=== PATIENT | female | born 1960 ===

== ENCOUNTER 2017-05-22 01:48 | Inpatient (IN) | payer OTHER ==
[2017-05-22 03:03] LABS: BASO % 0.4 % (0.0-2.0); EOS % 0.5 % (0.0-4.0); HEMOGLOBIN 13.4 g/dL (12.0-16.0); LYMPH # 1.6 K/uL (1.0-4.3); LYMPH % 18.8 % (20.0-40.0); MEAN CELL VOLUME 96.1 fl (81.0-99.0); MEAN CORPUSCULAR HEMOGLOBIN 32.1 pg (27.0-31.0); MEAN CORPUSCULAR HGB CONC 33.4 g/dL (33.0-37.0); MEAN PLATELET VOLUME 10.2 fl (7.2-11.7); MONO # 0.7 K/uL (0.0-0.8); MONO % 8.4 % (0.0-10.0); NEUT % 71.9 % (50.0-75.0); RBC 4.16 Mil/uL (3.80-5.20); RED CELL DISTRIBUTION WIDTH 12.9 % (11.5-14.5); WHITE BLOOD COUNT 8.3 K/uL (4.8-10.8)
[2017-05-22 03:18] LABS: ALB/GLOB RATIO 1.6 (1.0-2.1); ALBUMIN 4.4 g/dL (3.5-5.0); ALT/SGPT 32 U/L (9-52); AST/SGOT 35 U/L (14-36); BLOOD UREA NITROGEN 12 mg/dl (7-17); CALCIUM 9.6 mg/dL (8.4-10.2); GFR AFRICAN-AMERICAN > 60; GFR NON-AFRICAN AMERICAN > 60
[2017-05-22] MEDS ORDERED: Nitroglycerin 2% Ointment Foilpak UD TOP STA (03:32)
--- NOTE | 2017-05-22 03:34 | ED PDOC ---
HPI: Chest Pain Time Seen by Provider: 05/22/17 02:11 Chief Complaint (Nursing): Chest Pain Chief Complaint (Provider): Chest Pain History Per: Patient History/Exam Limitations: no limitations Onset/Duration Of Symptoms: Days (x1) Current Symptoms Are (Timing): Still Present Additional Complaint(s): 23 year old female with a past medical history of dyslipidemia, who presents to the ED complaining of acute substernal chest tightness x1 day. 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 Also states she felt anxious at the time. Says she went home after leaving work and her symptoms persisted. Denies vomiting, nausea, or diaphoresis. PMD: Non-[facility] Provider Past Medical History Reviewed: Historical Data, Nursing Documentation, Vital Signs Vital Signs: Last Vital Signs Temp 98.1 F 05/22/17 05:00 Pulse 68 05/22/17 05:24 Resp 18 05/22/17 05:24 BP 121/79 05/22/17 05:00 Pulse Ox 98 05/22/17 05:24 - Medical History Other PMH: Dyslipidemia - Surgical History Other surgeries: Right knee arthroscopy - Family History Family History: States: Unknown Family Hx - Social History Current smoker - smoking cessation education provided: No Alcohol: None Drugs: Denies - Home Medications Home Medications: Ambulatory Orders Medication Instructions Recorded No Known Home Med 05/22/17 - Allergies Allergies/Adverse Reactions: Allergies Allergy/AdvReac Type Severity Reaction Status Date / Time No Known Allergies Allergy FEVER Verified 05/22/17 02:31 Review of Systems Constitutional: Negative for: Sweats Cardiovascular: Positive for: Chest Pain (substernal tightness) Gastrointestinal: Negative for: Nausea, Vomiting Physical Exam - Reviewed Nursing Documentation Reviewed: Yes Vital Signs Reviewed: Yes - Physical Exam Appears: Positive for: Non-toxic, No Acute Distress Head Exam: Positive for: ATRAUMATIC, NORMAL INSPECTION, NORMOCEPHALIC Skin: Positive for: Normal Color, Warm, Dry. Negative for: Rash Eye Exam: Positive for: EOMI, Normal appearance, PERRL Neck: Positive for: Normal, Painless ROM, Supple Cardiovascular/Chest: Positive for: Regular Rate, Rhythm. Negative for: Murmur Respiratory: Positive for: Normal Breath Sounds. Negative for: Respiratory Distress Gastrointestinal/Abdominal: Positive for: Normal Exam, Bowel Sounds, Soft. Negative for: Tenderness Back: Positive for: Normal Inspection. Negative for: L CVA Tenderness, R CVA Tenderness, Vertebral Tenderness Extremity: Positive for: Normal ROM. Negative for: Pedal Edema, Deformity Neurologic/Psych: Positive for: Alert, Oriented (x3). Negative for: Motor/ Sensory Deficits Comments: Patient is obese. - Laboratory Results Result Diagrams: 05/22/17 02:57 05/22/17 02:57 - ECG O2 Sat by Pulse Oximetry: 98 (RA) Pulse Ox Interpretation: Normal Medical Decision Making Medical Decision Making: Time: 02:46 Initial Impression: 56 year old female with chest pain in setting of anxiety Plan: --EKG --CMP --Troponin I --Urine --CBC w/ differential --Portable Chest X-Ray --Heplock insertion --Reevaluation --EKG shows NSR at [address]-T changes in lateral leads Time: 03:42 --Chest X-Ray shows no active diseases --Labs reviewed and found clinically significant for elevated Troponin at 2.3 --Aspirin 324 mg PO --Lopressor 25 mg PO --Lovenox 90 mg SC --Nitropaste --Patient will be admitted to Dr. German for NSTEMI Scribe Attestation: Documented by Rex Lobato, acting as a scribe for Paulo Caceres MD. Provider Scribe Attestation: All medical record entries made by the Scribe were at my direction and personally dictated by me. I have reviewed the chart and agree that the record accurately reflects my personal performance of the history, physical exam, medical decision making, and the department course for this patient. I have also personally directed, reviewed, and agree with the discharge instructions and disposition. Disposition - Clinical Impression Clinical Impression: NSTEMI (non-ST elevated myocardial infarction) - Patient ED Disposition Is Patient to be Admitted: Yes - Disposition Disposition Time: 03:34 Condition: FAIR - Pt Status Changed To: Hospital Disposition Of: Inpatient - Admit Certification Admit to Inpatient:: After my assessment, the patient will require hospitalization for at least two midnights. This is because of the severity of symptoms shown, intensity of services needed, and/or the medical risk in this patient being treated as an outpatient.
[2017-05-22] MEDS ORDERED: Nitroglycerin 2% Ointment Foilpak UD TOP ONE (03:35)
[2017-05-22] MEDS ORDERED: Enoxaparin 100 mg Syringe SC STA (03:37)
--- NOTE | 2017-05-22 04:24 | CP.PCM.HP ---
History of Present Illness - History of Present Illness History of Present Illness: CC: chest pain HPI: 56 y/o woman w/ pmh of HLD presents to the ED for chest pain. Patient reports pain started last night at 21:00, midsternal, burning in nature, radiating to the back and neck, 5-6/10 in intensity, intermittent, improved by sitting, and worsened by movement. Patient denies taking medications at home for pain. 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 Patient currently denies pain. Patient denies headaches, dizziness, SOB, abdominal pain, nausea, vomiting, diarrhea, dysuria, fever, or recent illness. ED course: vitals: 99.0 F, 89 bpm, 149/82 mm Hg, resp 16, O2 98% RA CBC w/ differential: 8.3>13.4/40.0 CMP: 140/3.7, 103/27, 12/0.7, glucose 128, AST 35, ALT 32, alk phos 95 Troponin I: 2.23 EKG: NSR at [address]-T changes in lateral leads Portable Chest X-Ray: shows no active diseases Aspirin 324 mg PO Lopressor 25 mg PO Lovenox 90 mg SC Nitropaste Patient will be admitted to [facility] for NSTEMI PMD: [facility] PMH: D allerrgies: NKDA meds: simvastatin 20 mg PO daily PSH: left knee arthroscopy 2007 FamHx: denies SOC; denies smoking, alcohol, and illegal drugs ROS: 12 points assessed and negative unless otherwise reported in HPI Present on Admission - Present on Admission Any Indicators Present on Admission: No History of DVT/PE: No History of Uncontrolled Diabetes: No Urinary Catheter: No Decubitus Ulcer Present: No Review of Systems - Review of Systems All systems: reviewed and no additional remarkable complaints except - Constitutional Constitutional: absent: Fever, Headache - EENT Eyes: absent: Change in Vision - Cardiovascular Cardiovascular: As Per HPI. absent: Leg Edema, Palpitations, Pedal Edema - Respiratory Respiratory: absent: Dyspnea, Wheezing - Gastrointestinal Gastrointestinal: absent: Abdominal Pain, Diarrhea, Nausea, Vomiting - Genitourinary Genitourinary: absent: Dysuria - Reproductive: Female Reproductive:Female: Post Menopausal - Menstruation Menstruation: Post Menopausal - Musculoskeletal Musculoskeletal: Back Pain - Integumentary Integumentary: absent: Rash - Neurological Neurological: absent: Dizziness, Headaches, Syncope Past Patient History - Past Social History Alcohol: None Drugs: Denies - PSYCHIATRIC Hx Substance Use: No - SURGICAL HISTORY Hx Surgeries: No Meds Allergies/Adverse Reactions: Allergies Allergy/AdvReac Type Severity Reaction Status Date / Time No Known Allergies Allergy FEVER Verified 05/22/17 02:31 Physical Exam - Constitutional Appears: Non-toxic, No Acute Distress - Head Exam Head Exam: ATRAUMATIC, NORMAL INSPECTION, NORMOCEPHALIC - Eye Exam Eye Exam: Normal appearance - ENT Exam ENT Exam: Mucous Membranes Moist, Normal Exam - Neck Exam Neck exam: Positive for: Full Rom, Normal Inspection. Negative for: Tenderness - Respiratory Exam Respiratory Exam: Clear to Auscultation Bilateral, NORMAL BREATHING PATTERN. absent: Decreased Breath Sounds, Prolonged Expiratory Phase, Rales, Rhonchi, Wheezes, Respiratory Distress - Cardiovascular Exam Cardiovascular Exam: REGULAR RHYTHM, RRR - GI/Abdominal Exam GI & Abdominal Exam: Normal Bowel Sounds, Soft. absent: Distended, Tenderness - Extremities Exam Extremities exam: Positive for: normal inspection. Negative for: calf tenderness, pedal edema, tenderness - Back Exam Back exam: NORMAL INSPECTION. absent: CVA tenderness (L), CVA tenderness (R), paraspinal tenderness, rash noted, tenderness, vertebral tenderness - Neurological Exam Neurological exam: Alert, Oriented x3 - Skin Skin Exam: Dry, Intact, Normal Color, Warm Results - Vital Signs Recent Vital Signs: Last Vital Signs Temp 98.8 F 05/22/17 03:45 Pulse 84 05/22/17 03:45 Resp 16 05/22/17 03:45 BP 136/91 H 05/22/17 03:45 Pulse Ox 98 05/22/17 03:51 - Labs Result Diagrams: 05/22/17 02:57 05/22/17 02:57 Labs: Laboratory Results - last 24 hr 05/22/17 05/22/17 02:57 02:57 WBC 8.3 D RBC 4.16 Hgb 13.4 Hct 40.0 MCV 96.1 MCH 32.1 H MCHC 33.4 RDW 12.9 Plt Count 151 MPV 10.2 Neut % (Auto) 71.9 Lymph % (Auto) 18.8 L [place] % (Auto) 8.4 Eos % (Auto) 0.5 Baso % (Auto) 0.4 Neut # 6.0 Lymph # 1.6 [place] # 0.7 Eos # 0.0 Baso # 0.0 Sodium 140 Potassium 3.7 Chloride 103 Carbon Dioxide 27 Anion Gap 14 BUN 12 Creatinine 0.7 Est GFR ( Amer) > 60 Est GFR (Non-Af Amer) > 60 Random Glucose 128 H Calcium 9.6 Total Bilirubin 0.4 AST 35 ALT 32 Alkaline Phosphatase 95 Troponin I 2.2300 H* Total Protein 7.1 Albumin 4.4 Globulin 2.7 Albumin/Globulin Ratio 1.6 Assessment & Plan - Assessment and Plan (Free Text) Assessment: 56 y/o woman w/ pmh of HLD presents to the ED for chest pain. EKG and troponin show NSTEMI Plan: Chest pain - patient currently denies - EKG and troponin show NSTEMI - IBRAHIMA score 3, intermediate - CBC w/ differential: 8.3>13.4/40.0 - CMP: 140/3.7, 103/27, 12/0.7, glucose 128, AST 35, ALT 32, alk phos 95 - Troponin I: 2.23 - EKG: NSR at [address]-T changes in lateral leads - Portable Chest X-Ray: shows no active diseases - given Aspirin 324 mg PO - given Lopressor 25 mg PO - given Lovenox 90 mg SC - given Nitropaste - Patient will be admitted to Tele for NSTEMI - monitor for acute changes - consider cardiology consult - c/w metoprolol tartrate 25 mg PO BID - f/u repeat troponin HLD - last lipid profile 03/17/2016: trig 131, chol 189, LDL 79, HDL 71 - on simvastatin 20 mg PO daily Prophylactic measures - lovenox 40 mg SC daily - protonix 40 mg PO daily
[2017-05-22] MEDS ORDERED: Influenza Vaccine 18yr & older 0.5 ML/45 MCG SYR IM ONE (05:46)
--- NOTE | 2017-05-22 08:00 | CP.PCM.PN ---
Subjective - Date & Time of Evaluation Date of Evaluation: 05/22/17 Time of Evaluation: 08:07 - Subjective Subjective: 56 F admitted for NSTEMI evaluation, was evaluated and examined by bedside. Pt reports her chest pain has improved remarkably, she is pain-free for 4 hours. Pt reports good appetite, able to ambulate. Pt c/o mild headache and left arm pain after influenza immunization administration. Pt denies fever, SOB, dizziness, abdominal pain, urinary complaints or peripheral edema. -Dr Hudson ordered echocardiogram today and was performed today. Results not available yet. Objective - Vital Signs/Intake and Output Vital Signs (last 24 hours): Temp Pulse Resp BP Pulse Ox 98.1 F 68 18 121/79 98 05/22/17 05:00 05/22/17 05:24 05/22/17 05:24 05/22/17 05:00 05/22/17 06:50 - Medications Medications: Current Medications Enoxaparin Sodium (Lovenox) 90 mg SC Q12 [facility] PRN Reason: Protocol Metoprolol Tartrate (Lopressor) 25 mg PO Q12 [facility] Pantoprazole Sodium (Protonix Ec Tab) 40 mg PO DAILY [facility]ARI - Labs Labs: 05/22/17 02:57 05/22/17 02:57 - Head Exam Head Exam: ATRAUMATIC, NORMAL INSPECTION, NORMOCEPHALIC - Eye Exam Eye Exam: Normal appearance - ENT Exam ENT Exam: Mucous Membranes Moist, Normal Exam - Neck Exam Neck Exam: Full ROM - Respiratory Exam Respiratory Exam: Clear to Ausculation Bilateral, NORMAL BREATHING PATTERN - Cardiovascular Exam Cardiovascular Exam: REGULAR RHYTHM, +S1, +S2 - GI/Abdominal Exam GI & Abdominal Exam: Soft. absent: Guarding, Tenderness - Extremities Exam Extremities Exam: Full ROM, Normal Inspection. absent: Joint Swelling Assessment and Plan - Assessment and Plan (Free Text) Plan: 56 y/o F with a PMHx of HLD, EKG shows ST chnages, elevated-troponin, admitted for evaluation and management of NSTEMI. Plan: 1. CHEST PAIN - IBRAHIMA score 3, intermediate - Troponin I: 2.23ng/mL at 02:57 and 1.5ng/mL at 10:44. - EKG at ED: nonspecific ST-T changes in lateral leads. Repeated EKG today at 09 :00 showed same results. - Portable Chest X-Ray: shows no active diseases - Aspirin 324 mg PO - Lopressor 25 mg PO - Lovenox 90 mg SC - Nitropaste - monitor for acute changes - Cardiology consult, called Dr Sal. - Pt will go for cardiac catheterization to [facility] tomorrow, 05/23/17. - dogger, Dr Hudson on board. - c/w metoprolol tartrate 25 mg PO BID - f/u repeat troponin, will be drawn at 17:45 - f/u hemoglobin A1c, echocardiogram results and cardiology recommendations. 2. HLD - last lipid profile 03/17/2016: trig 131, chol 189, LDL 79, HDL 71 - ASCVD risk: 1.4%. - Lipitor 10mg PO daily 3. Prophylactic measures - lovenox 40 mg SC daily - protonix 40 mg PO daily
[2017-05-22] MEDS ORDERED: Enoxaparin 40 mg Syringe SC SCH (09:00)
[2017-05-22] MEDS: Pantoprazole 40 mg EC Tab PO SCH (09:01)
[2017-05-22] MEDS: Enoxaparin 100 mg Syringe SC SCH ×2 (09:03→21:31)
--- NOTE | 2017-05-22 09:56 | RAD ---
HISTORY: chest pain COMPARISON: Chest radiograph dated 04/23/2012. FINDINGS: LUNGS: No active pulmonary disease. PLEURA: No significant pleural effusion identified, no pneumothorax apparent. CARDIOVASCULAR: Normal. OSSEOUS STRUCTURES: Unchanged. VISUALIZED UPPER ABDOMEN: Normal. OTHER FINDINGS: None. IMPRESSION: No active disease.
--- NOTE | 2017-05-22 10:52 | CP.PCM.CON ---
History of Present Illness - History of Present Illness History of Present Illness: 56 y/o h/f admitted with chest pain pain is described as pressure sensation at mid sternal area radiates to right and left chest this is first episode of pain EKG: lateral wall ischemia Troponin: + 2.26 Pt needs to have interventional cardiology see the patient for cardiac cath Past Patient History - Past Medical History & Family History Past Medical History?: Yes - Past Social History Alcohol: None Drugs: Denies - CARDIAC Hx Cardiac Disorders: Yes (Hypercholesterolemia) Hx Hypercholesterolemia: Yes - PULMONARY Hx Respiratory Disorders: No - NEUROLOGICAL Hx Neurological Disorder: No - HEENT Hx HEENT Problems: No - RENAL Hx Chronic Kidney Disease: No - ENDOCRINE/METABOLIC Hx Endocrine Disorders: No - HEMATOLOGICAL/ONCOLOGICAL Hx Blood Disorders: No - INTEGUMENTARY Hx Dermatological Problems: No - MUSCULOSKELETAL/RHEUMATOLOGICAL Hx Musculoskeletal Disorders: No Hx Falls: No - GASTROINTESTINAL Hx Gastrointestinal Disorders: No - GENITOURINARY/GYNECOLOGICAL Hx Genitourinary Disorders: No - PSYCHIATRIC Hx Psychophysiologic Disorder: No Hx Substance Use: No - SURGICAL HISTORY Hx Surgeries: No Hx Arthroscopy: Yes (LEFT KNEE) - ANESTHESIA Hx Anesthesia: Yes Hx Anesthesia Reactions: No Hx Malignant Hyperthermia: No Has any member of the family had a problem w/ anesthesia?: No Meds Allergies/Adverse Reactions: Allergies Allergy/AdvReac Type Severity Reaction Status Date / Time No Known Allergies Allergy FEVER Verified 05/22/17 02:31 - Medications Medications: Current Medications Atorvastatin Calcium (Lipitor) 10 mg PO DAILY [facility] Enoxaparin Sodium (Lovenox) 90 mg SC Q12 [facility] PRN Reason: Protocol Last Admin: 05/22/17 09:03 Dose: 90 mg Metoprolol Tartrate (Lopressor) 25 mg PO Q12 [facility] Pantoprazole Sodium (Protonix Ec Tab) 40 mg PO DAILY [facility] Last Admin: 05/22/17 09:01 Dose: 40 mg Physical Exam - Constitutional Appears: Well - Head Exam Head Exam: NORMAL INSPECTION - Eye Exam Eye Exam: Normal appearance - ENT Exam ENT Exam: Normal Exam - Respiratory Exam Respiratory Exam: NORMAL BREATHING PATTERN - Cardiovascular Exam Cardiovascular Exam: REGULAR RHYTHM Results - Vital Signs Recent Vital Signs: Last Vital Signs Temp 98.9 F 05/22/17 09:00 Pulse 80 05/22/17 09:00 Resp 18 05/22/17 09:00 BP 126/85 05/22/17 09:00 Pulse Ox 98 05/22/17 09:00 - Labs Result Diagrams: 05/22/17 02:57 05/22/17 02:57 Labs: Laboratory Results - last 24 hr 05/22/17 05/22/17 02:57 02:57 WBC 8.3 D RBC 4.16 Hgb 13.4 Hct 40.0 MCV 96.1 MCH 32.1 H MCHC 33.4 RDW 12.9 Plt Count 151 MPV 10.2 Neut % (Auto) 71.9 Lymph % (Auto) 18.8 L [place] % (Auto) 8.4 Eos % (Auto) 0.5 Baso % (Auto) 0.4 Neut # 6.0 Lymph # 1.6 [place] # 0.7 Eos # 0.0 Baso # 0.0 Sodium 140 Potassium 3.7 Chloride 103 Carbon Dioxide 27 Anion Gap 14 BUN 12 Creatinine 0.7 Est GFR ( Amer) > 60 Est GFR (Non-Af Amer) > 60 Random Glucose 128 H Calcium 9.6 Total Bilirubin 0.4 AST 35 ALT 32 Alkaline Phosphatase 95 Troponin I 2.2300 H* Total Protein 7.1 Albumin 4.4 Globulin 2.7 Albumin/Globulin Ratio 1.6 Assessment & Plan (1) NSTEMI (non-ST elevated myocardial infarction) Assessment and Plan: Pt needs to have cardiac cath Status: Acute
[2017-05-22] MEDS ORDERED: Heparin 25,000units in D5W 25,000 UNITS/250 ML BAG IV SCH (11:30)
[2017-05-22] MEDS ORDERED: Heparin Sodium (Porcine) 1,000 Units/ML 30ML IV ONE (11:32)
--- NOTE | 2017-05-22 16:33 | CARD ---
APPROVED REPORT EXAM: Two-dimensional and M-mode echocardiogram with Doppler and color Doppler. Other Information Quality : FairRhythm : INDICATION Abnormal EKG/Arrhythmia Chest Pain 2D DIMENSIONS IVSd1.02 (0.7-1.1cm)LVDd4.89 (3.9-5.9cm) PWd1.44 (0.7-1.1cm)IVSs1.05 (0.8-1.2cm) LVDs4.23 (2.5-4.0cm)FS (%) 13.6 % PWs1.47 (0.8-1.2cm)LVEF (%)30.0 (>50%) M-Mode DIMENSIONS Left Atrium (MM)3.66 (2.5-4.0cm)IVSd1.21 (0.7-1.1cm) Aortic Root2.63 (2.2-3.7cm)LVDd5.80 (4.0-5.6cm) Aortic Cusp Exc.1.49 (1.5-2.0cm)PWd1.17 (0.7-1.1cm) IVSs1.60 cmFS (%) 20 % LVDs4.64 (2.0-3.8cm)PWs1.39 cm Mitral Valve MV E Kbnaejcu54.4cm/sMV E Peak Gr.113mmHgMV DECEL [id number] MV A Aekfvdux45.2cm/sMV LGN46evT/A ratio0.9 MVA (PHT)4.41cm2 TDI Lateral E' Peak V7.09cm/sE/Lateral E'9.8E/Medial E'0.0 Tricuspid Valve TR Peak [id number]/sRAP [id number] Peak Gr.27mmHg [id number] LEFT VENTRICLE The left ventricle is normal size. There is mild concentric left ventricular hypertrophy. The systolic function is severely impaired. Sever Apical and Septal hypokinesis Transmitral Doppler flow pattern is Grade I-abnormal relaxation pattern. No left ventricle thrombus noted on this study. RIGHT VENTRICLE The right ventricle is normal size. There is normal right ventricular wall thickness. The right ventricular systolic function is normal. ATRIA The left atrium is borderline dilated. The right atrium size is normal. AORTIC VALVE The aortic valve is moderately thickened. No aortic regurgitation is present. There is no aortic valvular stenosis. MITRAL VALVE The mitral valve is mildly thickened. There is no mitral valve stenosis. Mitral regurgitation is mild. TRICUSPID VALVE The tricuspid valve is normal in structure. There is mild pulmonary hypertension. PULMONIC VALVE The pulmonary valve is normal in structure. There is no pulmonic valvular regurgitation. GREAT VESSELS The aortic root is normal in size. The IVC was not visualized. PERICARDIAL EFFUSION There is a trace loculated anterior pericardial effusion. <Conclusion> The left ventricle is normal size. There is mild concentric left ventricular hypertrophy. The systolic function is severely impaired. Sever Apical and Septal hypokinesis Transmitral Doppler flow pattern is Grade I-abnormal relaxation pattern. No left ventricle thrombus noted on this study. Mitral regurgitation is mild. There is mild pulmonary hypertension.
--- NOTE | 2017-05-22 17:57 | CP.PCM.CON ---
History of Present Illness - History of Present Illness History of Present Illness: Cardiology consult note for Dr. Tristan Espana DO, PGY - 1 - Pager [phone] Reason For Consult: NSTEMI HPI: 56 year old female with a past medical history significant for hyperlipidemia presented to ED with 3 hour duration of sharp and pressure-like, 6/10, substernal, left and right sided chest pain that radiated to her right shoulder and back, which did not get better with positional changes. The pain was not associated with any nausea, vomiting, diaphoresis, or shortness of breath. Patient was found to have an elevated troponin with ischemic changes in the inferior leads, which was why cardiology service was consulted. At bedside, patient states that the pain has currently subsided. It originated when she had an argument with her boss around 11 PM, and she states that she got worked up and emotional. Patient did not take an aspirin at home. When the pain failed to subside, she presented to the ED. She denies having a stress test, echocardiogram, or an AMI in the past. Patient states she sees a poured concrete wall technician at [facility], where she has had EKG's performed in the past, but does not remember his/her name. Of note, community cultural development officer at bedside providing translation. Past Surgical History: Left knee arthroscopy, 2007 Past Medical History: Hyperlipidemia Allergies: NKDA Social History: Patient denies tobacco, alcohol, illicits Hospitalizations: All outpatient visits in this facility Family History: Denies Medications: Simvastatin 20 mg - no longer takes this, states that her PMD took her off PMD: [facility] Insurance: Self-Pay Pharmacy: None Review of Systems: Constitutional: patient denies fever, chills, generalized weakness ENT: patient denies dysphagia, otalgia, hearing deficit, rhinorrhea Eyes: patient denies sudden loss of vision, diplopia, blurred vision MSK: patient denies muscle stiffness, joint pain, extremity cramping Cardio: See HPI Pulm: patient denies cough, hemoptysis, wheeze, shortness of breath Gastrointestinal: patient denies loss of appetite, pain, constipation, melena , nausea, vomiting, diarrhea Genitourinary: patient denies burning on urination, urinary frequency, hematuria, urinary urgency Neuro: patient denies paresis, paresthesia, dizziness, headache, numbness , tingling Derm: patient denies skin changes, lesions, nail changes Endo: patient denies intolerance to heat/cold, diaphoresis, night sweats, polydipsia Psych: patient denies anxiety, depression, mood changes Past Patient History - Past Medical History & Family History Past Medical History?: Yes - Past Social History Alcohol: None Drugs: Denies - CARDIAC Hx Cardiac Disorders: Yes (Hypercholesterolemia) Hx Hypercholesterolemia: Yes - PULMONARY Hx Respiratory Disorders: No - NEUROLOGICAL Hx Neurological Disorder: No - HEENT Hx HEENT Problems: No - RENAL Hx Chronic Kidney Disease: No - ENDOCRINE/METABOLIC Hx Endocrine Disorders: No - HEMATOLOGICAL/ONCOLOGICAL Hx Blood Disorders: No - INTEGUMENTARY Hx Dermatological Problems: No - MUSCULOSKELETAL/RHEUMATOLOGICAL Hx Musculoskeletal Disorders: No Hx Falls: No - GASTROINTESTINAL Hx Gastrointestinal Disorders: No - GENITOURINARY/GYNECOLOGICAL Hx Genitourinary Disorders: No - PSYCHIATRIC Hx Psychophysiologic Disorder: No Hx Substance Use: No - SURGICAL HISTORY Hx Surgeries: No Hx Arthroscopy: Yes (LEFT KNEE) - ANESTHESIA Hx Anesthesia: Yes Hx Anesthesia Reactions: No Hx Malignant Hyperthermia: No Has any member of the family had a problem w/ anesthesia?: No Meds Allergies/Adverse Reactions: Allergies Allergy/AdvReac Type Severity Reaction Status Date / Time No Known Allergies Allergy FEVER Verified 05/22/17 02:31 - Medications Medications: Current Medications Atorvastatin Calcium (Lipitor) 10 mg PO DAILY [facility] Enoxaparin Sodium (Lovenox) 90 mg SC Q12 [facility] PRN Reason: Protocol Last Admin: 05/22/17 09:03 Dose: 90 mg Sodium Chloride (Sodium Chloride 0.9%) 1,000 mls @ 125 mls/hr IV .Q8H [facility] Stop: 05/23/17 16:09 Metoprolol Tartrate (Lopressor) 25 mg PO Q12 [facility] Last Admin: 05/22/17 16:33 Dose: Not Given Pantoprazole Sodium (Protonix Ec Tab) 40 mg PO DAILY [facility] Last Admin: 05/22/17 09:01 Dose: 40 mg Physical Exam - Additional Findings Additional findings: Physical Exam: Vital Signs as below Const'l: awake alert & oriented x 4, no acute distress; occitan speaking Head/Neck: neck supple, no jvd, trachea midline, carotid midline, no cervical/head mass Eyes: pupils equally reactive to light and accommodation, nonicteric sclera, extraocular intact ENT: auditory acuity grossly intact, throat not congested, no nasal deformity Cardio: regular rate, regular rhythm, no murmurs rubs gallops, no carotid bruit, normal s1, s2 Pulm: +diffuse mild wheezes anteriorly and posteriorly; no accessory muscle use, equal breath sounds bilaterally, Abd: soft non tender non-distended, normal bowel sounds x 4 quadrants, no palpable masses Derm: no rashes, no ulcers, no lesions Extr: +1+ edema bilateral lower extremities; no cyanosis, no calf tenderness, no lesions, no varicosities Neuro: cranial nerves II-XII grossly intact, upper extremity and lower extremity 5/5 muscle strength bilaterally, no loss of sensation in upper extremities, lower extremities bilaterally and core Results - Vital Signs Recent Vital Signs: Last Vital Signs Temp 97.8 F 05/22/17 17:00 Pulse 79 05/22/17 17:00 Resp 16 05/22/17 17:00 BP 106/70 05/22/17 17:00 Pulse Ox 99 05/22/17 17:00 - Labs Result Diagrams: 05/22/17 02:57 05/22/17 02:57 Labs: Laboratory Results - last 24 hr 05/22/17 05/22/17 05/22/17 02:57 02:57 10:44 WBC 8.3 D RBC 4.16 Hgb 13.4 Hct 40.0 MCV 96.1 MCH 32.1 H MCHC 33.4 RDW 12.9 Plt Count 151 MPV 10.2 Neut % (Auto) 71.9 Lymph % (Auto) 18.8 L [place] % (Auto) 8.4 Eos % (Auto) 0.5 Baso % (Auto) 0.4 Neut # 6.0 Lymph # 1.6 [place] # 0.7 Eos # 0.0 Baso # 0.0 Sodium 140 Potassium 3.7 Chloride 103 Carbon Dioxide 27 Anion Gap 14 BUN 12 Creatinine 0.7 Est GFR ( Amer) > 60 Est GFR (Non-Af Amer) > 60 Random Glucose 128 H Calcium 9.6 Total Bilirubin 0.4 AST 35 ALT 32 Alkaline Phosphatase 95 Troponin I 2.2300 H* 1.5000 H* Total Protein 7.1 Albumin 4.4 Globulin 2.7 Albumin/Globulin Ratio 1.6 Assessment & Plan - Assessment and Plan (Free Text) Assessment: Assessment and Plan: 56 year old female with past medical history significant for hyperlipidemia presents with 3 hour duration of chest pain which has currently resolved. Troponins elevated without ST elevations, NSTEMI NSTEMI - Troponin 2.23, follow up Troponins are 1.5 and 1, EKG shows NSR at [address]-T changes in lateral leads, inverted T-waves in inferior leads, and left axis deviation - ECHO ordered - Given Aspirin 324 mg PO, Lopressor 25 mg PO, Lovenox 90 mg SC, Nitropaste - Patient scheduled for label paster tomorrow early afternoon Hyperlipidemia - Lipid profile in March 2016 shows well controlled - No longer takes Simvastatin - Will readdress post catheterization, likely place patient on Lipitor 40 Prophylactic measures - Lovenox 90 mg SC as above - Protonix 40 mg PO daily Dispo: Patient undergoing cardiac catheterization at tomorrow PM
--- NOTE | 2017-05-22 21:37 | CARD ---
APPROVED REPORT EKG Measurement Heart [id number] <Conclusion> Normal sinus rhythm Left axis deviation T wave abnormality, consider lateral ischemia Prolonged QT Abnormal ECG
[2017-05-22] MEDS: Sodium Chloride 0.9% 1,000 ML IV SCH (21:39)
--- NOTE | 2017-05-22 21:46 | CARD ---
APPROVED REPORT EKG Measurement Heart [id number] <Conclusion> Normal sinus rhythm ST & T wave abnormality, consider lateral ischemia Abnormal ECG
[2017-05-23 05:28] LABS: MEAN CELL VOLUME 97.8 fl (81.0-99.0); MEAN CORPUSCULAR HGB CONC 32.7 g/dL (33.0-37.0); RBC 3.75 Mil/uL (3.80-5.20); RED CELL DISTRIBUTION WIDTH 13.2 % (11.5-14.5); WHITE BLOOD COUNT 5.4 K/uL (4.8-10.8)
[2017-05-23 06:01] LABS: LDL CHOLESTEROL 81 mg/dL (0-129)
[2017-05-23] MEDS: Sodium Chloride 0.9% 1,000 ML IV SCH ×2 (06:21→09:58)
[2017-05-23 06:25] LABS: ALBUMIN 3.6 g/dL (3.5-5.0); BLOOD UREA NITROGEN 9 mg/dl (7-17); CALCIUM 8.9 mg/dL (8.4-10.2); GFR AFRICAN-AMERICAN > 60; GFR NON-AFRICAN AMERICAN > 60
[2017-05-23 06:26] LABS: ALB/GLOB RATIO 1.4 (1.0-2.1); ALT/SGPT 28 U/L (9-52); AST/SGOT 36 U/L (14-36); HDL CHOLESTEROL 62 MG/DL (30-70)
--- NOTE | 2017-05-23 07:41 | CP.PCM.PN ---
Subjective - Date & Time of Evaluation Date of Evaluation: 05/23/17 Time of Evaluation: 07:17 - Subjective Subjective: 56 y/o F admitted for evaluation and management of chest pain. Pt evaluated and examined by bed side. Pt reports feeling well but anxious about upcoming cardiac catheterization procedure, currently denies chest pain. Pt afebrile with no acute event overnight. Pt tolerated food yesterday until midnight. Pt denied headache, SOB, dizziness, abdominal pain, urinary complaints or peripheral edema. Today, 05/23/17: -HbA1c 6.3-elevated. -Lipid panel unremarkable. -Echocardiogram: mild concentric LVH, LVEF 30%, apical and septal hypokinesis, mild pulmonary HTN, mild abnormla relaxation. -Pt will be transfered to [facility] later today. Objective - Vital Signs/Intake and Output Vital Signs (last 24 hours): Temp Pulse Resp BP Pulse Ox 98.6 F 73 18 107/71 97 05/23/17 05:00 05/23/17 05:00 05/23/17 05:00 05/23/17 05:00 05/23/17 05:00 Intake and Output: 05/23/17 05/23/17 06:59 18:59 Intake Total 1250 Balance 1250 - Medications Medications: Current Medications Atorvastatin Calcium (Lipitor) 10 mg PO DAILY [facility] Enoxaparin Sodium (Lovenox) 90 mg SC Q12 [facility] PRN Reason: Protocol Last Admin: 05/22/17 21:31 Dose: 90 mg Sodium Chloride (Sodium Chloride 0.9%) 1,000 mls @ 125 mls/hr IV .Q8H [facility] Stop: 05/23/17 16:09 Last Admin: 05/23/17 06:21 Dose: Not Given Metoprolol Tartrate (Lopressor) 25 mg PO Q12 [facility] Last Admin: 05/22/17 21:36 Dose: Not Given Pantoprazole Sodium (Protonix Ec Tab) 40 mg PO DAILY [facility] Last Admin: 05/22/17 09:01 Dose: 40 mg - Labs Labs: 05/23/17 04:35 05/23/17 04:35 - Constitutional Appears: Well, No Acute Distress - Head Exam Head Exam: ATRAUMATIC, NORMAL INSPECTION - Eye Exam Eye Exam: EOMI, Normal appearance - ENT Exam ENT Exam: Mucous Membranes Moist, Normal Exam - Neck Exam Neck Exam: Full ROM, Normal Inspection. absent: Tenderness - Respiratory Exam Respiratory Exam: Clear to Ausculation Bilateral, NORMAL BREATHING PATTERN - Cardiovascular Exam Cardiovascular Exam: REGULAR RHYTHM, RRR, +S1, +S2. absent: JVD, Murmur - GI/Abdominal Exam GI & Abdominal Exam: Soft, Normal Bowel Sounds. absent: Guarding, Rigid, Tenderness - Extremities Exam Extremities Exam: Full ROM, Normal Inspection. absent: Calf Tenderness, Joint Swelling - Neurological Exam Neurological Exam: Alert, Awake, CN II-XII Intact, Oriented x3 - Psychiatric Exam Psychiatric exam: Normal Affect, Normal Mood Assessment and Plan - Assessment and Plan (Free Text) Assessment: 56 y/o F with a PMHx of HLD, EKG shows ST changes, elevated-troponin, admitted for evaluation and management of chest pain. Plan: 1. CHEST PAIN - IBRAHIMA score 3, intermediate - Troponin I: 2.23ng/mL at 02:57, 1.5ng/mL at 10:44 and 1.0ng/mL at 18:21. - EKG at ED: nonspecific ST-T changes in lateral leads. Repeated EKG today at 09 :00 showed same results. - Portable Chest X-Ray: shows no active diseases - Aspirin 324 mg PO - Lopressor 25 mg PO - Lovenox 90 mg SC - Cardiology consult, by Dr Sal. - toy maker, Dr Hudson on board. - Pt for cardiac catheterization at [facility] today, 05/23/17. - c/w metoprolol tartrate 25 mg PO BID - Echocardiogram: mild concentric LVH, LVEF 30%, apical and septal hypokinesis, grade I abnormal relaxation, mild MR, mild pulmonary HTN. - F/U primary special education teacher recommendations after cardiac catheterization. 2. HEART FAILURE - Echocardiogram: mild concentric LVH, LVEF 30%, apical and septal hypokinesis, grade I abnormal relaxation, mild MR, mild pulmonary HTN. - Aspirin 324 mg PO - Lopressor 25 mg PO - Cardiology consult, by Dr Sal. - toy maker, Dr Hudson on board. - Considering beta tanya, CLAY inhibitor and anti-platelet agent upon discharge. - F/U primary special education teacher recommendations after cardiac catheterization. 3. HLD - Last lipid profile 03/17/2016: trig 131, chol 189, LDL 79, HDL 71 - ASCVD risk: 1.4%. - Lipitor 10mg PO daily - Today's lipid panel: CHOL 171, LDL 81, HDL 62, Trig 110 - all WNL. 4. GLUCOSE INTOLERANCE/Insulin resistance -HbA1c 6.3-elevated -Lifestyles changes reinforced. -Will recommend pt to initiate Metformin in the otupatient setting. 5. Prophylactic measures - lovenox 40 mg SC daily - protonix 40 mg PO daily
--- NOTE | 2017-05-23 08:20 | CP.PCM.PN ---
Subjective - Date & Time of Evaluation Date of Evaluation: 05/23/17 Time of Evaluation: 08:18 - Subjective Subjective: Cardiology progress note for Dr. Tristan Espana DO PGY -1 - Pager Patient seen and examined at bedside. She states she is doing well and that her chest pain has resolved. Communicated to patient that she is to undergo catheterization today, and she understands. Patient denies shortness of breath , fevers, chills, nausea, vomiting, and diarrhea. Objective - Vital Signs/Intake and Output Vital Signs (last 24 hours): Temp Pulse Resp BP Pulse Ox 98 F 71 18 116/76 96 05/23/17 08:06 05/23/17 08:06 05/23/17 08:06 05/23/17 08:06 05/23/17 08:06 Intake and Output: 05/23/17 05/23/17 06:59 18:59 Intake Total 1250 Balance 1250 - Medications Medications: Current Medications Atorvastatin Calcium (Lipitor) 10 mg PO DAILY [facility] Enoxaparin Sodium (Lovenox) 90 mg SC Q12 [facility] PRN Reason: Protocol Last Admin: 05/22/17 21:31 Dose: 90 mg Sodium Chloride (Sodium Chloride 0.9%) 1,000 mls @ 125 mls/hr IV .Q8H [facility] Stop: 05/23/17 16:09 Last Admin: 05/23/17 06:21 Dose: Not Given Metoprolol Tartrate (Lopressor) 25 mg PO Q12 [facility] Last Admin: 05/22/17 21:36 Dose: Not Given Pantoprazole Sodium (Protonix Ec Tab) 40 mg PO DAILY [facility] Last Admin: 05/22/17 09:01 Dose: 40 mg - Labs Labs: 05/23/17 04:35 05/23/17 04:35 - Additional Findings Additional findings: Physical Exam: Vital Signs as below Const'l: awake alert & oriented x 4, no acute distress; estonian speaking Head/Neck: neck supple, no jvd, trachea midline, carotid midline, no cervical/head mass Eyes: pupils equally reactive to light and accommodation, nonicteric sclera, extraocular intact ENT: auditory acuity grossly intact, throat not congested, no nasal deformity Cardio: regular rate, regular rhythm, no murmurs rubs gallops, no carotid bruit, normal s1, s2 Pulm: +diffuse mild wheezes anteriorly and posteriorly; no accessory muscle use, equal breath sounds bilaterally, Abd: soft non tender non-distended, normal bowel sounds x 4 quadrants, no palpable masses Derm: no rashes, no ulcers, no lesions Extr: +1+ edema bilateral lower extremities; no cyanosis, no calf tenderness, no lesions, no varicosities Neuro: cranial nerves II-XII grossly intact, upper extremity and lower extremity 5/5 muscle strength bilaterally, no loss of sensation in upper extremities, lower exremities, and core Assessment and Plan - Assessment and Plan (Free Text) Assessment: Assessment and Plan: 56 year old female with past medical history significant for hyperlipidemia presents with 3 hour duration of chest pain which has currently resolved. Troponins elevated without ST elevations, NSTEMI. NSTEMI - Troponin 2.23, follow up Troponins are 1.5 and 1, EKG shows NSR at [address]-T changes in lateral leads, inverted T-waves in inferior leads, and left axis deviation - ECHO ordered - Given Aspirin 324 mg PO, Lopressor 25 mg PO, Lovenox 90 mg SC, Nitropaste - Patient underwent cath today, which showed: See operative note for further details Hyperlipidemia - Lipid profile in March 2016 shows well controlled - No longer takes Simvastatin - Will readdress post catheterization, likely place patient on Lipitor 40 Prophylaxis - Lovenox 90 mg SC as above - Protonix 40 mg PO daily Dispo: Patient should be discharged on CLAY-I, Beta-tanya, ASA, Statin, and Imdur. Discharge per primary team
[2017-05-23] MEDS: Pantoprazole 40 mg EC Tab PO SCH (09:57)
[2017-05-23] MEDS: Enoxaparin 100 mg Syringe SC SCH (09:58)
[2017-05-24] MEDS: Enoxaparin 100 mg Syringe SC SCH ×3 (03:38→09:14)
--- NOTE | 2017-05-24 04:23 | CP.PCM.PCO ---
Addendum Addendum: 05/24/17 02:21 Nurse called that patient returned from [place] after successfully underwent cardiac cath. Patient stable, VS WNL and has no complains. Heart healthy diet to be restarted for breakfast. New orders for Lisinopril, ASA and Coreg noticed. No information about results of study available at this time. Will discuss with morning team.
[2017-05-24 06:28] LABS: HEMOGLOBIN 11.5 g/dL (12.0-16.0)
[2017-05-24 06:29] LABS: BLOOD UREA NITROGEN 12 mg/dl (7-17); GFR AFRICAN-AMERICAN > 60; GFR NON-AFRICAN AMERICAN > 60
[2017-05-24 08:08] VITALS: RESP 20; O2SAT 98
--- NOTE | 2017-05-24 08:57 | CP.PCM.PN ---
Subjective - Date & Time of Evaluation Date of Evaluation: 05/24/17 Time of Evaluation: 08:37 - Subjective Subjective: Cardiology progress note for Dr. Tristan Espana, PGY - 1 Patient seen and examined at bedside. Patient currently has no complaints after her procedure except for some mild pain at the catheter site when she applies pressure to it to stand up. Patient denies symptoms of infection such as fevers and chills, denies chest pain, shortness of breath, nausea, vomiting, and diarrhea. I explained the patient's hospital course to her, including the ECHO, the Catheterization, and the NSTEMI. Patient expressed understanding. Objective - Vital Signs/Intake and Output Vital Signs (last 24 hours): Temp Pulse Resp BP Pulse Ox 97.4 F L 63 20 108/73 98 05/24/17 08:00 05/24/17 08:00 05/24/17 08:00 05/24/17 08:00 05/24/17 08:00 - Medications Medications: Current Medications Aspirin (Aspirin Chewable) 81 mg PO DAILY [facility] Atorvastatin Calcium (Lipitor) 10 mg PO DAILY [facility] Last Admin: 05/23/17 09:57 Dose: 10 mg Carvedilol (Coreg) 3.125 mg PO Q12 [facility] Last Admin: 05/24/17 03:43 Dose: Not Given Enoxaparin Sodium (Lovenox) 90 mg SC Q12 [facility] PRN Reason: Protocol Last Admin: 05/24/17 03:38 Dose: 90 mg Lisinopril (Zestril) 5 mg PO DAILY [facility] Pantoprazole Sodium (Protonix Ec Tab) 40 mg PO DAILY [facility] Last Admin: 05/23/17 09:57 Dose: 40 mg - Labs Labs: 05/24/17 05:55 05/24/17 05:55 - Additional Findings Additional findings: Physical Exam: Vital Signs as below Const'l: awake alert & oriented x 4, no acute distress; bermudian speaking Head/Neck: neck supple, no jvd, trachea midline, carotid midline, no cervical/head mass Eyes: pupils equally reactive to light and accommodation, nonicteric sclera, extraocular intact ENT: auditory acuity grossly intact, throat not congested, no nasal deformity Cardio: regular rate, regular rhythm, no murmurs rubs gallops, no carotid bruit, normal s1, s2 Pulm: +diffuse mild wheezes anteriorly and posteriorly - now resolved; no accessory muscle use, equal breath sounds bilaterally, Abd: soft non tender non-distended, normal bowel sounds x 4 quadrants, no palpable masses Derm: no rashes, no ulcers, no lesions Extr: +1+ edema bilateral lower extremities; no cyanosis, no calf tenderness, no lesions, no varicosities Neuro: cranial nerves II-XII grossly intact, upper extremity and lower extremity 5/5 muscle strength bilaterally, no loss of sensation in upper extremities, lower exremities, and core Assessment and Plan - Assessment and Plan (Free Text) Assessment: Assessment and Plan: 56 year old female with past medical history significant for hyperlipidemia presents with 3 hour duration of chest pain which has currently resolved. Troponins elevated without ST elevations, NSTEMI. NSTEMI - Troponin 2.23, follow up Troponins are 1.5 and 1, EKG shows NSR at [address]-T changes in lateral leads, inverted T-waves in inferior leads, and left axis deviation - ECHO ordered - Given Aspirin 324 mg PO, Lopressor 25 mg PO, Lovenox 90 mg SC, Nitropaste - Patient underwent cath today, which showed: EF that is more like 45% See operative note for further details Hyperlipidemia - Lipid profile in March 2016 shows well controlled - No longer takes Simvastatin - Will readdress post catheterization, likely place patient on Lipitor 40 Prophylaxis - Lovenox 90 mg SC as above - Protonix 40 mg PO daily Dispo: Patient should be discharged on CLAY-I, Beta-tanya, ASA, Statin, and Imdur. Patient stable from cardiology standpoint
[2017-05-24] MEDS: Pantoprazole 40 mg EC Tab PO SCH (09:09)
--- NOTE | 2017-05-24 11:23 | CP.PCM.DIS ---
Provider - Provider Date of Admission: 05/22/17 03:34 Attending physician: Kanika Oconnor MD Primary care physician: [facility]. Consults: Cardiology: Dr Sal Interventional cardiology: Dr Hudson. Time Spent in preparation of Discharge (in minutes): 30 Hospital Course - Lab Results Lab Results: Most Recent Lab Values WBC 5.4 K/uL (4.8-10.8) 05/23/17 04:35 RBC 3.75 Mil/uL (3.80-5.20) L 05/23/17 04:35 Hgb 11.5 g/dL (12.0-16.0) L 05/24/17 05:55 Hct 34.4 % (34.0-47.0) 05/24/17 05:55 MCV 97.8 fl (81.0-99.0) 05/23/17 04:35 MCH 32.0 pg (27.0-31.0) H 05/23/17 04:35 MCHC 32.7 g/dL (33.0-37.0) L 05/23/17 04:35 RDW 13.2 % (11.5-14.5) 05/23/17 04:35 Plt Count 122 K/uL (130-400) L D 05/23/17 04:35 MPV 10.2 fl (7.2-11.7) 05/22/17 02:57 Neut % (Auto) 71.9 % (50.0-75.0) 05/22/17 02:57 Lymph % (Auto) 18.8 % (20.0-40.0) L 05/22/17 02:57 Mchenry % (Auto) 8.4 % (0.0-10.0) 05/22/17 02:57 Eos % (Auto) 0.5 % (0.0-4.0) 05/22/17 02:57 Baso % (Auto) 0.4 % (0.0-2.0) 05/22/17 02:57 Neut # 6.0 K/uL (1.8-7.0) 05/22/17 02:57 Lymph # 1.6 K/uL (1.0-4.3) 05/22/17 02:57 Mchenry # 0.7 K/uL (0.0-0.8) 05/22/17 02:57 Eos # 0.0 K/uL (0.0-0.7) 05/22/17 02:57 Baso # 0.0 K/uL (0.0-0.2) 05/22/17 02:57 Sodium 142 mmol/l (132-148) 05/24/17 05:55 Potassium 4.0 MMOL/L (3.6-5.0) 05/24/17 05:55 Chloride 105 mmol/L (98-107) 05/24/17 05:55 Carbon Dioxide 31 mmol/L (22-30) H 05/24/17 05:55 Anion Gap 10 (10-20) 05/24/17 05:55 BUN 12 mg/dl (7-17) 05/24/17 05:55 Creatinine 0.9 mg/dl (0.7-1.2) 05/24/17 05:55 Est GFR ( Amer) > 60 05/24/17 05:55 Est GFR (Non-Af Amer) > 60 05/24/17 05:55 Random Glucose 92 mg/dL (65-105) 05/24/17 05:55 Hemoglobin A1c 6.3 % (4.2-6.5) 05/22/17 14:29 Calcium 9.0 mg/dL (8.4-10.2) 05/24/17 05:55 Total Bilirubin 0.5 mg/dl (0.2-1.3) 05/23/17 04:35 AST 36 U/L (14-36) 05/23/17 04:35 ALT 28 U/L (9-52) 05/23/17 04:35 Alkaline Phosphatase 72 U/L (38-126) 05/23/17 04:35 Troponin I 1.0000 ng/mL (0.00-0.120) H* 05/22/17 18:21 Total Protein 6.1 G/DL (6.3-8.2) L 05/23/17 04:35 Albumin 3.6 g/dL (3.5-5.0) 05/23/17 04:35 Globulin 2.5 gm/dL (2.2-3.9) 05/23/17 04:35 Albumin/Globulin Ratio 1.4 (1.0-2.1) 05/23/17 04:35 Triglycerides 110 mg/DL (0-149) 05/23/17 04:35 Cholesterol 171 mg/dL (0-199) 05/23/17 04:35 LDL Cholesterol Direct 81 mg/dL (0-129) 05/23/17 04:35 HDL Cholesterol 62 MG/DL (30-70) 05/23/17 04:35 - Hospital Course Hospital Course: 56 y/o F with a PMHx of HLD was admitted for evaluation and management of chest pain. EKG showed unspecified ST changes and her troponins were elevated. Echo cardiogram was performed, an LVEF of 30% was reported. Catheterization performed at [facility] ([facility] on 05/23/17, which showed a LVEF of 40-45%. -Upon discharge, pt was started on Carvedilol 3.125mg BID, Lisinopril 5mg daily , Aspirin 81mg daily and Simvastatin 20mg daily. -Labs showed a HbA1c of 6.3-elevated, lipid panel was WNL during hospitalization. -Pt discharged today with recommendations of following up with PCP on Sunday, Metformin may be initiated outpatient. Lifestyle changes reinforced. - Date & Time of H&P Date of H&P: 05/22/17 Time of H&P: 04:08 Discharge Exam - Head Exam Head Exam: ATRAUMATIC, NORMAL INSPECTION - Eye Exam Eye Exam: EOMI, Normal appearance - ENT Exam ENT Exam: Mucous Membranes Moist, Normal Exam - Neck Exam Neck exam: Full Rom, Normal Inspection - Respiratory Exam Respiratory Exam: Clear to PA & Lateral, NORMAL BREATHING PATTERN, UNREMARKABLE - Cardiovascular Exam Cardiovascular Exam: REGULAR RHYTHM, +S1, +S2 - GI/Abdominal Exam GI & Abdominal Exam: Normal Bowel Sounds, Soft. absent: Distended, Guarding, Tenderness - Extremities Exam Extremities exam: full ROM - Psychiatric Exam Psychiatric exam: Normal Affect, Normal Mood - Skin Skin Exam: Normal Color, Warm Discharge Plan - Discharge Medications Prescriptions: Aspirin [Aspirin Chewable] 81 mg PO DAILY #30 chew Carvedilol [Coreg] 3.125 mg PO Q12 #60 tab Lisinopril [Zestril] 5 mg PO DAILY #30 tab Simvastatin [Zocor] 20 mg PO HS 30 Days #20 tablet - Follow Up Plan Condition: STABLE Disposition: HOME/ ROUTINE Instructions: Myocardial Infarction (DC), Heart Failure (DC), Heart Failure ( GEN) Additional Instructions: -Please follow up with Patricia Lynch at [facility] within 5-7 days. -Please continue with healthy diet, start medication as instructed, and follow with PCP for medications' evaluation and possible modification.
[2017-05-24 12:58] VITALS: PULSE 66; TEMP 97.3
[2017-05-24 15:37] VITALS: BP 115/76
== END 2017-05-24 15:00 | disposition home or self-care (01) | DRG 122 ==
LOC: H.ER 01:48 → H.ERHOLD 03:34 → H.TEL 04:41
PROVIDERS: ADMIT Family Medicine Geriatric Medicine; ATTEND Family Medicine Geriatric Medicine
PROC: 3E0234Z Introduction of Serum, Toxoid and Vaccine into Muscle, Percutaneous Approach (ICD-10-PCS; principal; 2017-05-22)
PROC: 4A023N7 Measurement of Cardiac Sampling and Pressure, Left Heart, Percutaneous Approach (ICD-10-PCS; 2017-05-23)
PROC: B206YZZ Plain Radiography of Right and Left Heart using Other Contrast (ICD-10-PCS; 2017-05-23)
DX: I21.4 Non-ST elevation (NSTEMI) myocardial infarction (principal); I27.20 Pulmonary hypertension, unspecified; Z23 Encounter for immunization; Z79.82 Long term (current) use of aspirin; Z79.899 Other long term (current) drug therapy; E78.00 Pure hypercholesterolemia, unspecified; E78.5 Hyperlipidemia, unspecified; F41.9 Anxiety disorder, unspecified